=== PATIENT | female | born 1955 | race Two or more races ===

== ENCOUNTER 2024-02-01 16:33 | Emergency (ER) | payer OTHER, MEDICAID ==
[~2024-02-01] VITALS: Ht 149.9 cm; Wt 59.0 kg
[2024-02-01 18:31] VITALS: BP 139/61; PULSE 68; RESP 13; TEMP 98.4; O2SAT 98
== END 2024-02-01 18:35 | disposition home or self-care (01) ==
LOC: ER 16:33
DX: S92.355A Nondisplaced fracture of fifth metatarsal bone, left foot, initial encounter for closed fracture (principal); X58.XXXA Exposure to other specified factors, initial encounter; Y93.89 Activity, other specified; Y92.89 Other specified places as the place of occurrence of the external cause; Y99.8 Other external cause status
CPT/HCPCS: 73630